=== PATIENT | female | born 1955 | race Asian ===

== ENCOUNTER 2018-06-15 09:00 | Outpatient (RCR) | payer OTHER | END 2018-06-17 | LOC: PT 09:00 | PROVIDERS: ATTEND Otolaryngology | DX: H81.11 Benign paroxysmal vertigo, right ear (principal); R29.6 Repeated falls; Z91.81 History of falling ==

== ENCOUNTER 2018-07-02 12:50 | Outpatient (RCR) | payer OTHER | END 2018-07-17 | LOC: PT 12:50 | PROVIDERS: ATTEND Otolaryngology | DX: H81.11 Benign paroxysmal vertigo, right ear (principal) ==